=== PATIENT | female | born 1940 | race Caucasian/White ===

== ENCOUNTER 2018-12-05 11:12 | Inpatient (IN) | payer MEDICARE, BC ==
[2018-12-05 12:41] VITALS: BMI 30.7
[2018-12-05] MEDS ORDERED: traMADol HCl 50 MG TAB PO PRN ×2 (15:06→15:07)
[2018-12-05] MEDS: Ferrous Sulfate 325 MG TAB PO SCH (16:38)
[2018-12-05] MEDS: Acetaminophen 500 MG TAB PO SCH (16:38)
[2018-12-05] MEDS: Ascorbic Acid 500 mg Chewable Tablet PO SCH (16:39)
[2018-12-05] MEDS ORDERED: Milk Of Magnesia 30 ML UDCUP PO PRN (18:31)
[2018-12-05] MEDS ORDERED: Bisacodyl 10 MG SUPP PR PRN (18:32)
[2018-12-05] MEDS: Aspirin Chewable 81 MG TAB PO SCH (20:44)
[2018-12-05] MEDS: Atorvastatin Calcium 10 MG TAB PO SCH (20:44)
[2018-12-05] MEDS: Gabapentin 300 MG CAP PO SCH (20:44)
[2018-12-06] MEDS: Acetaminophen 500 MG TAB PO SCH ×4 (00:08→17:00)
[2018-12-06] MEDS: Aspirin Chewable 81 MG TAB PO SCH ×2 (09:20→20:33)
[2018-12-06] MEDS: Gabapentin 300 MG CAP PO SCH ×3 (09:20→20:33)
[2018-12-06] MEDS: Ferrous Sulfate 325 MG TAB PO SCH ×2 (09:20→16:40)
[2018-12-06] MEDS: Ascorbic Acid 500 mg Chewable Tablet PO SCH ×2 (09:20→16:40)
[2018-12-06] MEDS: Atorvastatin Calcium 10 MG TAB PO SCH (20:33)
[2018-12-07] MEDS: Acetaminophen 500 MG TAB PO SCH ×4 (00:01→17:09)
[2018-12-07] MEDS: Ferrous Sulfate 325 MG TAB PO SCH ×2 (08:31→17:09)
[2018-12-07] MEDS: Aspirin Chewable 81 MG TAB PO SCH ×2 (08:31→20:23)
[2018-12-07] MEDS: Gabapentin 300 MG CAP PO SCH ×3 (08:31→20:23)
[2018-12-07] MEDS: Ascorbic Acid 500 mg Chewable Tablet PO SCH ×2 (08:31→17:09)
[2018-12-07] MEDS: rOPINIRole HCl 2 MG TAB PO SCH (20:23)
[2018-12-07] MEDS: Atorvastatin Calcium 10 MG TAB PO SCH (20:23)
[2018-12-08] MEDS: Acetaminophen 500 MG TAB PO SCH ×4 (00:03→17:14)
--- NOTE | 2018-12-08 04:20 | HP ---
CHIEF COMPLAINT: Skilled care with Physical and Occupational Therapy, status post right distal third femoral shaft fracture with retrograde intramedullary nailing of distal third of the femoral shaft fracture. HISTORY OF PRESENT ILLNESS: Ms. Zhou is a 78-year-old female with hyperlipidemia, osteoporosis, anemia, gait instability with peripheral neuropathy status post ground level fall on December 02. She sustained right distal third femoral shaft fracture. She denied loss of consciousness or head injury. The patient underwent retrograde intramedullary nailing of the distal third femoral shaft fracture under Dr. Erwin. During her stay at [facility], she had low blood pressure, cortisol level was taken at 13. She was started on hydrocortisone 25 mg per IV every 8 hours with significant improvement of her blood pressure. Her gabapentin was also adjusted from 600 mg three times a day to 300 mg t.i.d. as probably primary reason of her fall. Prior to her transfer , she started with physical therapy, she was able to maintain 50% partial weightbearing on right lower extremity. She walked 176 feet using rolling walker with contact guard assist. The patient had significant fatigue, weakness on right lower extremity. She has a weak gait, decreased strength and endurance, hence recommendation for [facility] facility with Physical and Occupational Therapy. Today, she walked 250 feet x2 with rolling walker with contact guard assist. She denies worsening pain on the operative site. However, she is complaining of constant on both lower extremity, described as urgency to move and shake legs. She has neuropathy and possible restless legs syndrome, being treated with gabapentin 600 mg t.i.d. prior to her fall. PAST MEDICAL HISTORY: 1. Peripheral neuropathy with gait instability. 2. Frequent falls. 3. Hyperlipidemia. 4. Osteoporosis. 5. Anemia. PAST SURGICAL HISTORY: 1. Hysterectomy. 2. Hernia repair. 3. Right retrograde intramedullary nailing of the distal third femoral shaft fracture. ALLERGIES: NO KNOWN DRUG ALLERGIES. PERSONAL AND SOCIAL HISTORY: The patient lives independently in her home in [place]. She has five children, four local. She has a daughter, who lives 10 miles away. She was previously independent with also self-care and home making. Family stated she has fallen about 2-3 times in addition to the last fall. She drinks alcohol on social gatherings. No drug or tobacco use. MEDICATIONS: 1. Tylenol 1000 mg every 6 hours p.r.n. for pain. 2. Vitamin C 500 mg b.i.d. 3. Aspirin 81 mg b.i.d. 4. Lipitor 10 mg at bedtime. 5. Dulcolax suppository 10 mg daily p.r.n. for constipation. 6. Colace 100 mg b.i.d. p.r.n. for constipation. 7. Ferrous sulfate 325 mg b.i.d. 8. Neurontin 300 mg t.i.d. 9. Milk of magnesia 30 mL daily p.r.n. for constipation. 10. Tramadol 50-100 mg q.6 hours p.r.n. for pain. 11. Requip 2 mg t.i.d. REVIEW OF SYSTEMS: GENERAL: No fever, no chills. Negative for fatigue. HEENT: Negative for headaches. Negative for sore throat. CARDIOVASCULAR: Negative for chest pain. Negative for edema. RESPIRATORY: Negative for shortness of breath. Negative for wheezing. GI: Negative for nausea or vomiting. MUSCULOSKELETAL: Positive for right lower extremity pain with bilateral urgency to move legs. Describes stressless and painful sensation. PSYCH: No anxiety. No depression. DERMATOLOGY: Negative for skin rash or lesions. PHYSICAL EXAMINATION: VITAL SIGNS: Blood pressure 139/64, temperature of 98.3, pulse of 69, RR of 18 , O2 saturation 97% on room air. GENERAL: The patient is alert, oriented, not in respiratory distress. HEENT: Normocephalic, atraumatic. Pupils equal and reactive to light. NECK: Supple. Negative for lymphadenopathy. CHEST AND LUNGS: Symmetrical expansion. Clear to auscultation. HEART: Regular rate, rhythm. Negative for murmur, rubs, or gallops. ABDOMEN: Flat, soft, nontender. Normoactive bowel sounds. Negative for CVA tenderness. EXTREMITIES: Positive for symmetrical range of motion of bilateral upper extremities, decreased range of motion of right lower extremity. Left lower extremity negative for edema, negative for deformities, negative for Homans signs. PSYCH: Appropriate affect and demeanor. NEUROLOGIC: Alert and oriented x3. No focal deficits. LABS AND IMAGING: Reviewed. ASSESSMENT: 1. Right femoral distal shaft fracture, status post retrograde intramedullary nailing of the distal third femoral shaft fracture. 2. Peripheral neuropathy with gait instability and frequent falls. 3. Osteoporosis. 4. Anemia. 5. Hyperlipidemia. 6. Restless legs syndrome. 7. Constipation. PLAN: The patient was admitted for skilled rehabilitation with Physical and Occupational Therapy. Prognosis for significant improvement with reasonable time appears good. We will monitor for infection, bleeding, adjust pain medication and monitor for side effects of current medications. She will participate with Physical Therapy to address strength, range of motion, transfer training, gait transfers, family training and safety training with progression to home exercises. She will participate with OT to address ADLs. We will reconcile her hospital medication and adjust dosage prior to her discharge. manager fleet to address how the patient can be discharged safely and in timely manner. Anticipate discharge to go home in about 2 to 3 weeks. Job ID: [id number] [id number]
[2018-12-08] MEDS: rOPINIRole HCl 2 MG TAB PO SCH ×3 (08:51→20:47)
[2018-12-08] MEDS: Ascorbic Acid 500 mg Chewable Tablet PO SCH ×2 (08:51→17:13)
[2018-12-08] MEDS: Aspirin Chewable 81 MG TAB PO SCH ×2 (08:51→20:47)
[2018-12-08] MEDS: Gabapentin 300 MG CAP PO SCH ×3 (08:51→20:47)
[2018-12-08] MEDS: Ferrous Sulfate 325 MG TAB PO SCH ×2 (08:51→17:13)
[2018-12-08] MEDS: Docusate 100 MG CAP PO PRN (09:06)
[2018-12-08] MEDS: Atorvastatin Calcium 10 MG TAB PO SCH (20:47)
[2018-12-09] MEDS: Acetaminophen 500 MG TAB PO SCH ×5 (00:07→23:58)
[2018-12-09] MEDS ORDERED: Acetaminophen 500 MG TAB ONE ×4 (05:36→23:55)
[2018-12-09] MEDS: Aspirin Chewable 81 MG TAB PO SCH ×2 (08:42→21:00)
[2018-12-09] MEDS: Gabapentin 300 MG CAP PO SCH ×3 (08:42→21:00)
[2018-12-09] MEDS: Ferrous Sulfate 325 MG TAB PO SCH ×2 (08:42→17:08)
[2018-12-09] MEDS: rOPINIRole HCl 2 MG TAB PO SCH ×2 (08:42→15:06)
[2018-12-09] MEDS: Ascorbic Acid 500 mg Chewable Tablet PO SCH ×2 (08:43→17:09)
[2018-12-09] MEDS: rOPINIRole HCl 0.25 MG TAB PO SCH (21:00)
[2018-12-09] MEDS: Atorvastatin Calcium 10 MG TAB PO SCH (21:00)
[2018-12-10] MEDS ORDERED: Acetaminophen 500 MG TAB ONE (05:06)
[2018-12-10] MEDS: Acetaminophen 500 MG TAB PO SCH ×4 (06:15→23:51)
[2018-12-10] MEDS: Gabapentin 300 MG CAP PO SCH ×3 (08:10→20:59)
[2018-12-10] MEDS: Ferrous Sulfate 325 MG TAB PO SCH ×2 (08:10→17:18)
[2018-12-10] MEDS: Docusate 100 MG CAP PO PRN (08:10)
[2018-12-10] MEDS: Aspirin Chewable 81 MG TAB PO SCH ×2 (08:10→20:59)
[2018-12-10] MEDS: Ascorbic Acid 500 mg Chewable Tablet PO SCH ×2 (08:11→17:18)
[2018-12-10] MEDS: rOPINIRole HCl 0.25 MG TAB PO SCH (20:59)
[2018-12-10] MEDS: Atorvastatin Calcium 10 MG TAB PO SCH (20:59)
[2018-12-11] MEDS: Acetaminophen 500 MG TAB PO SCH ×3 (05:29→17:54)
[2018-12-11 05:40] LABS: Hemoglobin 9.2 g/dL (12.0-16.0); Platelet Count 359 thou/uL (130-400)
[2018-12-11 05:49] LABS: Calc. Creatinine Clearance 87 mL/min (70-130); Estimated GFR-MDRD Greater than 90
[2018-12-11] MEDS: Ferrous Sulfate 325 MG TAB PO SCH ×2 (08:30→17:54)
[2018-12-11] MEDS: Ascorbic Acid 500 mg Chewable Tablet PO SCH ×2 (08:30→17:54)
[2018-12-11] MEDS: Gabapentin 300 MG CAP PO SCH ×3 (09:19→20:14)
[2018-12-11] MEDS: Enoxaparin Sodium 40 MG/0.4 ML SYRINGE SC SCH (09:20)
[2018-12-11] MEDS: Aspirin Chewable 81 MG TAB PO SCH ×2 (09:30→20:15)
[2018-12-11] MEDS: rOPINIRole HCl 0.25 MG TAB PO SCH (20:14)
[2018-12-11] MEDS: Atorvastatin Calcium 10 MG TAB PO SCH (20:15)
[2018-12-12] MEDS: Acetaminophen 500 MG TAB PO SCH ×4 (05:47→17:42)
[2018-12-12] MEDS: Ferrous Sulfate 325 MG TAB PO SCH ×2 (08:36→17:43)
[2018-12-12] MEDS: Ascorbic Acid 500 mg Chewable Tablet PO SCH ×2 (08:37→17:43)
[2018-12-12] MEDS: Enoxaparin Sodium 40 MG/0.4 ML SYRINGE SC SCH (08:37)
[2018-12-12] MEDS: Gabapentin 300 MG CAP PO SCH ×3 (08:37→21:45)
[2018-12-12] MEDS: Aspirin Chewable 81 MG TAB PO SCH ×2 (08:37→21:45)
[2018-12-12] MEDS: Atorvastatin Calcium 10 MG TAB PO SCH (21:45)
[2018-12-12] MEDS: rOPINIRole HCl 0.25 MG TAB PO SCH (21:45)
[2018-12-13] MEDS: Acetaminophen 500 MG TAB PO SCH ×3 (00:05→11:57)
[2018-12-13 06:00] LABS: Hemoglobin 9.6 g/dL (12.0-16.0); Platelet Count 375 thou/uL (130-400)
[2018-12-13 06:09] LABS: Calc. Creatinine Clearance 82 mL/min (70-130); Estimated GFR-MDRD Greater than 90
[2018-12-13 06:52] VITALS: BP 119/56; TEMP 98.6
[2018-12-13] MEDS: Ferrous Sulfate 325 MG TAB PO SCH (08:40)
[2018-12-13] MEDS: Enoxaparin Sodium 40 MG/0.4 ML SYRINGE SC SCH (08:40)
[2018-12-13] MEDS: Gabapentin 300 MG CAP PO SCH (08:41)
[2018-12-13] MEDS: Ascorbic Acid 500 mg Chewable Tablet PO SCH (08:41)
[2018-12-13] MEDS: Aspirin Chewable 81 MG TAB PO SCH (08:41)
--- NOTE | 2018-12-14 17:11 | PRG ---
DATE OF SERVICE: 12/08/2018 SUBJECTIVE: The patient is complaining of persistent leg pain, described as annoying tingling on both legs, needing to move legs constantly, sleep pattern is disturbed. She is desperate to find medication to treat her condition. She was previously taking high-dose gabapentin that was decreased to half dosage due to recent fall that resulted in right femoral shaft fracture. She has some bruising and slight redness on the incision site. Good range of motion of both lower extremities. The patient is participating well with physical and occupational therapy. OBJECTIVE: VITAL SIGNS: Blood pressure of 152/65, temperature 98.1, pulse of 75, respirations of 18, and O2 saturation 100% on room air. GENERAL: The patient is alert, oriented, not in respiratory distress. HEENT: Normocephalic and atraumatic. Pupils are equal and reactive to light. NECK: Supple. Negative for lymphadenopathy. CHEST AND LUNGS: Symmetrical expansion. Clear to auscultation. HEART: Regular rate and rhythm. Negative for murmur. ABDOMEN: Flat, soft, nontender. Negative for CVA tenderness. EXTREMITIES: Positive for symmetrical range of motion of bilateral upper and lower extremities. Decreased range of motion of right lower extremity. PSYCH: Appropriate affect and demeanor. NEUROLOGIC: Alert and oriented x3. No focal deficits. ASSESSMENT: 1. Right femoral distal shaft fracture, status post retrograde intramedullary nailing of the distal third femoral shaft fracture. 2. Admitted for aftercare for orthopedic procedure. 3. Peripheral neuropathy with gait instability and frequent falls. 4. Osteoporosis. 5. Anemia. 6. Hyperlipidemia. 7. Restless legs syndrome. 8. Constipation. PLAN: 1. Start Requip 2 mg twice a day. 2. Continue physical and occupational therapy. Facilitate discharge planning, likely discharge to home in 1 to 2 weeks. Job ID: [id number]
--- NOTE | 2018-12-14 17:13 | PRG ---
DATE OF SERVICE: 12/09/2018 SUBJECTIVE: The patient experienced excessive drowsiness after taking Requip yesterday, she noticed some improvement with bilateral leg pain. Bruising and redness noted on the affected leg slightly improved. The patient is participating well with physical and occupational therapy. Her daughter is requesting for home health with physical therapy once she gets discharged. Daughter will be going back home, and the patient will need assistance, she claimed that the patient's sister will be staying with the patient for the whole week once she gets discharged. OBJECTIVE: VITAL SIGNS: Blood pressure 152/70, temperature 98.3, pulse of 74, respiratory rate of 18, O2 saturation 98%. GENERAL: The patient is alert, oriented, not in respiratory distress. HEENT: Normocephalic and atraumatic. Pupils are equally reactive to light. NECK: Supple. Negative for lymphadenopathy. CHEST AND LUNGS: Symmetrical expansion. Clear to auscultation. HEART: Regular rate and rhythm. Negative for murmur. ABDOMEN: Flat, soft, and nontender. EXTREMITIES: Negative for Homans signs. Negative for cyanosis and edema. PSYCHIATRIC: Appropriate affect and demeanor. ASSESSMENT: 1. Right femoral distal shaft fracture, status post retrograde intramedullary nailing of distal third femoral shaft fracture. 2. Admitted for aftercare for orthopedic procedure. 3. Peripheral neuropathy with gait instability and frequent falls. 4. Restless legs syndrome. 5. Osteoporosis. 6. Anemia. 7. Hyperlipidemia. 8. Constipation. PLAN: 1. Lower dose of Requip, monitor for any side effects of drowsiness. 2. Continue present pain medication. Monitor vital signs due to episodes of high blood pressure readings. 3. Prepare for discharge planning, case managers to assist. The patient will require physical therapy utilizing home health versus outpatient once she gets discharged. Thank you very much. Job ID: [id number]
[2018-12-25] MEDS ORDERED: ACTONEL 150 MG FS SCH (15:15)
== END 2018-12-13 13:30 | disposition home or self-care (01) | DRG 561 ==
LOC: BURMED 11:55
PROVIDERS: ADMIT Family Medicine; ATTEND Family Medicine
DX: S72.301D Unspecified fracture of shaft of right femur, subsequent encounter for closed fracture with routine healing (principal); E78.5 Hyperlipidemia, unspecified; M81.0 Age-related osteoporosis without current pathological fracture; R26.81 Unsteadiness on feet; G62.9 Polyneuropathy, unspecified; R29.6 Repeated falls; D64.9 Anemia, unspecified; G25.81 Restless legs syndrome; K59.00 Constipation, unspecified; Z90.710 Acquired absence of both cervix and uterus; Z79.82 Long term (current) use of aspirin; W18.30XD Fall on same level, unspecified, subsequent encounter
CPT/HCPCS: 36415; 82565; 85014; 85018; 85049; J1650